=== PATIENT | male | born 1945 | race Caucasian/White ===

== ENCOUNTER 2018-06-11 14:37 | Inpatient (IN) | payer OTHER ==
[2018-06-11] MEDS ORDERED: Lidocaine 1% PF 5 ML VIAL ONE (14:38)
[2018-06-11] MEDS ORDERED: Dexamethasone 20 MG/5 ML VIAL ONE (14:38)
[2018-06-11] MEDS ORDERED: PROPOFOL 200 MG/20 ML VIAL ONE (14:38)
[2018-06-11] MEDS ORDERED: Ondansetron HCl/PF 4 MG/2 ML Vial ONE ×2 (14:38→15:08)
[2018-06-11] MEDS ORDERED: Acetaminophen/Codeine 30-300mg Tablet ONE (14:50)
[2018-06-11] MEDS ORDERED: Morphine 4 MG/ML Carpuject ONE ×2 (15:08→17:24)
[2018-06-11 15:26] LABS: Band 2 % (5-11); Lymphocytes 2 % (21-51); MDiff Complete? YES; Mean Corpuscular HGB CONC 35.8 g/dL (32.0-36.0); Mean Corpuscular Hemoglobin 29.8 pg (27.0-31.0); Mean Corpuscular Volume 83.1 fL (78.0-98.0); Mean Platelet Volume 8.1 fL (7.4-10.4); Monocytes 1 % (0-10); Neutrophil 95 % (42-75); PLT Morphology Comment Appears Adequate; Platelet Count 275 thou/uL (130-400); RBC Distribution Width 10.9 % (11.5-14.5); RBC Morphology Normal; Red Blood Cell (RBC) Count 5.39 mill/uL (4.70-6.10); White Blood Cell (WBC) Count 22.5 thou/uL (4.8-10.8)
[2018-06-11 16:10] LABS: ALT (SGPT) 25 U/L (8-55); AST (SGOT) 19 U/L (5-34); Albumin 4.4 g/dL (3.4-4.8); Alkaline Phosphatase 71 U/L (40-150); Anion Gap 20 mmol/L (10-20); BUN (Urea Nitrogen) 16 mg/dL (8.4-25.7); Bilirubin, Total 1.4 mg/dL (0.2-1.2); Calc. Creatinine Clearance 0 mL/min (70-130); Calcium 9.5 mg/dL (7.8-10.44); Carbon Dioxide 19 mmol/L (23-31); Chloride 103 mmol/L (98-107); Estimated GFR-MDRD 71; Globulin 3.4 g/dL (2.4-3.5); Glucose 166 mg/dL (83-110); Lipase 13 U/L (8-78); Potassium 4.5 mmol/L (3.5-5.1); Protein, Total 7.8 g/dL (5.8-8.1); Sodium 137 mmol/L (136-145)
--- NOTE | 2018-06-11 16:14 | CT ---
CT ABDOMEN AND PELVIS WITHOUT CONTRAST: 06/11/18 HISTORY: Left flank pain. FINDINGS: Absence of oral and IV contrast reduces the sensitivity of the exam particularly for evaluation of so lid organs and bowel. The lung bases are unremarkable. A moderate sized hiatal hernia is present. No free air or free fluid is seen in the abdomen or pelvis. No calcified gallstones are seen. There are multiple calcified gra nulomas in the spleen. A normal appearing appendix is present. No calculi noted in the kidneys, urinary bladder or the right ureter. There is a 3 mm calculus in the left distal ureter close to the UVJ with ipsilateral mild hydroureteronephrosis. There is colonic diverticulosis without evidence of diverticulitis. There are vascular calcifications without evidence of aneurysmal dilatation of the abdominal aorta. Degenerative changes are present i n the spine. The prostate is enlarged. There are fat containing bilateral inguinal hernia, left large r than right. IMPRESSION: 1. 3 mm distal left ureteral calculus with mild hydroureteronephrosis. 2. Prostatic enlargement. 3. Moderate hiatal hernia. 4. Colonic diverticulosis. POS: OFF
[2018-06-11] MEDS ORDERED: cefTRIAXone\\ROCEPHIN 1 GM VIAL ONE ×2 (16:58→17:05)
[2018-06-11] MEDS ORDERED: Sodium Chloride 0.9% 100 ML ONE (16:58)
[2018-06-11] MEDS ORDERED: Fentanyl 100 MCG/2 ML VIAL ONE (18:16)
[2018-06-11 19:01] LABS: Lactic Acid 2.5 mmol/L (0.5-2.2)
[2018-06-11] MEDS ORDERED: Ondansetron HCl/PF 4 MG/2 ML Vial IVP PRN ×2 (19:31→21:48)
[2018-06-11] MEDS ORDERED: Promethazine HCl 25 MG/ML VIAL IM PRN (19:31)
[2018-06-11] MEDS ORDERED: Promethazine HCl 25 MG/ML VIAL SLOW IVP PRN (19:31)
--- NOTE | 2018-06-11 19:38 | RAD ---
SINGLE SUBMITTED IMAGE FROM AN IVP RETROGRADE 06/11/18 INDICATION: Renal stones. COMPARISON: Prior CT of the abdomen and pelvis dated 06/11/18. FINDINGS: Single submitted image demonstrates bladder probe and a left ureteral stent that projects in the expe cted position. There are numerous phleboliths within the lower pelvis. The bowel gas pattern is nons pecific. No acute osseous abnormality is evident. IMPRESSION: Left ureteral stent and bladder probe. POS: ZORAIDA
[2018-06-11 20:11] LABS: Clarity Hazy (Clear); Leukocyte Moderate (Negative); pH, Urine 5.5 (5.0-9.0)
[2018-06-11 20:12] LABS: Bilirubin Unable to Interpret (Negative); Blood, Urine Large (Negative); Glucose, Urine (Dipstick) Unable to Interpret mg/dL (Negative); Nitrite Unable to Interpret (Negative); Urobilinogen UNABLE TO INTERPRET mg/dL (0.2-1.0)
[2018-06-11 20:18] LABS: Protein, Urine (Dipstick) 30 mg/dL (Neg-Trace)
[2018-06-11 20:19] LABS: RBC/HPF GREATER THAN 50-TNTC HPF (0-3); Squamous Epithelial 0-3 HPF (0-3)
[2018-06-11 20:20] LABS: Bacteria/HPF 1+ HPF (None Seen); Hyaline Casts/LPF NONE SEEN LPF (0-3 Hyaline); Transitional Epithelial 0-3 HPF (0-3)
[2018-06-11] MEDS ORDERED: Vancomycin HCl 1 GM in Premix Bag 1 BAG IVPB SCH (21:00)
[2018-06-11] MEDS ORDERED: Docusate 100 MG CAP PO PRN (21:48)
[2018-06-11] MEDS ORDERED: Loratadine 10 MG TAB PO PRN (21:48)
[2018-06-11] MEDS ORDERED: Famotidine 20 MG TAB PO PRN (21:48)
[2018-06-11] MEDS ORDERED: Diabetic Tussin 200 MG/10 ML UDCUP PO PRN (21:48)
[2018-06-11] MEDS ORDERED: Fleet Enema 133 ML BOT PR PRN (21:48)
[2018-06-11] MEDS ORDERED: diphenhydrAMINE 25 MG CAP PO PRN (21:48)
[2018-06-11] MEDS ORDERED: hydrALAZINE 20 MG/ML VIAL SLOW IVP PRN (21:48)
[2018-06-11] MEDS ORDERED: Bisacodyl 5 MG TAB PO PRN (21:48)
[2018-06-11] MEDS ORDERED: Sodium Chloride 0.65% Nasal 44 ML BOT EA NARE PRN (21:48)
[2018-06-11] MEDS ORDERED: Acetaminophen 325 MG TAB PO PRN (21:48)
[2018-06-11] MEDS ORDERED: Benzonatate 100 MG CAP PO PRN (21:48)
[2018-06-11] MEDS ORDERED: Senokot 8.6 MG TAB PO PRN (21:48)
[2018-06-11 22:00] VITALS: BMI 28.3
[2018-06-12 05:27] LABS: Anion Gap 9 mmol/L (10-20); BUN (Urea Nitrogen) 13 mg/dL (8.4-25.7); Calc. Creatinine Clearance 80 mL/min (70-130); Calcium 8.5 mg/dL (7.8-10.44); Carbon Dioxide 24 mmol/L (23-31); Chloride 110 mmol/L (98-107); Estimated GFR-MDRD 77; Glucose 173 mg/dL (83-110); Potassium 4.3 mmol/L (3.5-5.1); Sodium 139 mmol/L (136-145)
[2018-06-12 05:52] LABS: Band 4 % (5-11); Hemoglobin 13.6 g/dL (14.0-18.0); Hypochromia SLIGHT = 6-15 cells (100X) (0-5/hpf); Lymphocytes 3 % (21-51); MDiff Complete? YES; Mean Corpuscular HGB CONC 33.1 g/dL (32.0-36.0); Mean Corpuscular Hemoglobin 30.1 pg (27.0-31.0); Mean Corpuscular Volume 91.1 fL (78.0-98.0); Mean Platelet Volume 7.5 fL (7.4-10.4); Neutrophil 93 % (42-75); PLT Morphology Comment Appears Adequate; Platelet Count 212 thou/uL (130-400); RBC Distribution Width 11.7 % (11.5-14.5); Red Blood Cell (RBC) Count 4.53 mill/uL (4.70-6.10); White Blood Cell (WBC) Count 20.1 thou/uL (4.8-10.8)
[2018-06-12] MEDS: Tamsulosin HCl 0.4 MG CAP PO SCH (08:43)
[2018-06-12] MEDS: Heparin 5,000 UNITS/ML VIAL SC SCH ×3 (08:43→20:28)
--- NOTE | 2018-06-12 08:46 | OP ---
Please note that I did a consultation by hand and that is in the chart so it will not be a dictated consultation, but that can be scanned in. DATE OF SERVICE: 06/11/2018 PREOPERATIVE DIAGNOSES: Left ureteral stone with urinary tract infection and concern for sepsis. POSTOPERATIVE DIAGNOSES: Left ureteral stone with urinary tract infection and concern for sepsis. PROCEDURES: Cystoscopy, left retrograde pyelogram, insertion of left ureteral stent, 6 x 22. SURGEON: Janeen Meade MD ANESTHESIA: General with laryngeal mask airway. FINDINGS: Significant hydronephrotic drip, but no obvious hydronephrosis by retrograde pyelogram, adequate placement of 6 x 22 double-J stent for distal obstructing stone. COMPLICATIONS: None. DRAINS REMAININ x 22 indwelling double-J stent and an 18-St Helenian Ricardo secured. SPECIMENS: Urine from the left renal pelvis. BLOOD LOSS: Minimal. OTHER FINDINGS: BPH with significant trabeculation and cellules. INDICATIONS: The patient is a 73-year-old male who was seen in the [facility] and noted to have a urinary tract infection with a distal obstructing stone and transferred with an elevated heart rate, white count, and lactic acid. He was otherwise hemodynamically stable, so I elected to do an urgent stent. PROCEDURE IN DETAIL: The patient was brought into the room by Anesthesia, laid on the table in supine position after receiving general anesthetic with a laryngeal mask airway carefully and without having to maneuver his neck and any significant change from its natural position. His airway was secured. Then, his legs were placed in lithotomy position and his perineum was prepped and draped in sterile fashion. A 21-St Helenian cystoscope and 30-degree lens was used to traverse the urethra and into the bladder, very orange urine consistent with Pyridium was noted and released, but it was not cloudy, nor malodorous. The prostate was enlarged but was able to easily identify both ureteral orifices. Trabeculation and cellules were noted someto be the size of a small diverticulum. The left ureteral orifice was intubated with a wire and then the Pollack catheter advanced over the wire and up into the renal pelvis where hydronephrotic drip was noted and approximately 15 mL of hematuric urine extracted. It was still transparent urine and sent for specimen. Measurements were taken and a 6 x 22 double-J was placed over wire with a coil slightly extended into a erich proximally and a good coil visualized in the bladder. I did not wish to pull it down further making it too distal, since I suspect when he would awaken and move the proximal end would coil naturally. So at this point, the scope was broken apart, the bladder partially drained and an 18- [place] Helenian Ricardo placed to gravity and secured. The patient tolerated the procedure well and was then awakened and transferred to PACU in stable condition. ALEXANDER
--- NOTE | 2018-06-12 08:57 | PRG ---
DATE OF SERVICE: 06/12/2018 SUBJECTIVE: The patient did well overnight, actually slept well, drank without difficulty and is hun gry. He did have pain in the left flank with void, but he has been able to void 2 times without diff iculty and does feel empty. The urine is still hematuric. He has no other complaints. We reviewed his bladder findings consistent with significant BPH and how again after the stone episod e he should still continue on tamsulosin as an outpatient and have that further assessed with a Urofl ow. We then discussed plans for either returning to the operating room after discharge and on an ou tpatient basis to get rid of the stone, but also how since it is quite small simply removing the sten t in the office will likely enable its passage. Putting him to sleep is complicated by his cervical contraction, but fortunately he did well with just an LMA for this procedure; however, that I think i s an increased risk from a surgical standpoint, so I would recommend attempting spontaneous passage w ith just stent removal as an outpatient which would happen in approximately 10-14 days. OBJECTIVE: Objective-cohen, his vitals are stable. His pulse is now down to 66 and he is satting 97% on 2 liters. His urine output is excellent at 1325 and the urine does appear to be clearing in comp arison through the night before. LABORATORY DATA: His white count is still elevated, but I suspect this is a slow resolution as it is improved. His BUN and creatinine are stable and normal. Urinalysis from the OR showed 11-20, WBCs too numerous to count RBCs, 1+ bacteria. There should be a culture from the [facility] ER as well as from the OR pending. ASSESSMENT: We have a 73-year-old male status post urgent stent for obstructing small left distal st one with urinary tract infection and concern for urosepsis doing well on Rocephin and vancomycin curr ently. I would await his culture, either from the [facility] ER or the OR here before lucy nging him over to antibiotics that he should complete for 2 weeks. If blood cultures are positive, h jakob ultimately would need 4 weeks of antibiotics. I have already written for tamsulosin and Cipro, but this may need to be changed depending on the culture results and he should follow up with me in the office. We reviewed all of this in detail. All questions were answered. If there are further al rns Dr. Pedraza will be transitional nurse over the weekend, but I suspect once his cultures come back, he will be medically stable for discharge.
--- NOTE | 2018-06-12 11:02 | PDOC.PN ---
- Subjective Encounter Start Date: 06/12/18 Encounter Start Time: 11:00 Subjective: nsg notes rev, gabbie ovn, Ricardo is out, pt is urinating sponataneously -: but c/o it is still painful - Objective Resuscitation Status: Resuscitation Status FULL:Full Resuscitation Vital Signs & Weight: Vital Signs (12 hours) Temp Pulse Resp BP Pulse Ox 06/12/18 08:00 96.9 F L 67 20 97 06/12/18 07:32 96.9 F L 67 20 143/66 H 97 06/12/18 03:51 96.3 F L 66 18 124/70 97 06/11/18 23:55 97.3 F L 85 16 117/66 95 Weight Weight 171 lb I&O: 06/11/18 06/12/18 06/13/18 06:59 06:59 06:59 Intake Total 1300 Output Total 1355 Balance -55 Result Diagrams: 06/12/18 04:43 06/12/18 04:43 Phys Exam - Physical Examination Constitutional: NAD seated in hospital chair HEENT: PERRLA, moist MMs Respiratory: no wheezing, no rales, no rhonchi Cardiovascular: RRR, no significant murmur, no rub Gastrointestinal: soft, non-tender, positive bowel sounds Musculoskeletal: pulses present Neurological: moves all 4 limbs Dx/Plan - Plan cont current plan of care, continue antibiotics * obstructive 3mm L ureteral stone * apprec urology c/s * Ricardo is removed sepsis improving, continue with empiric abx bacteremia, Klebsiella continue with empiric abx repeat blood cx appre ID c/s cough improved, continue supportive care diet: as elaine activity: as elaine dvt ppx plan for transfer to telemetry Review of Systems - Medications/Allergies Allergies/Adverse Reactions: Allergies Allergy/AdvReac Type Severity Reaction Status Date / Time codeine Allergy Nausea Verified 06/11/18 22:08 Medications: Current Medications Acetaminophen (Tylenol) 650 mg PO Q4H PRN PRN Reason: Headache/Fever or Mild Pain Benzonatate (Tessalon) 100 mg PO Q4H PRN PRN Reason: Cough Last Admin: 06/11/18 22:47 Dose: 100 mg Bisacodyl (Dulcolax) 10 mg PO DAILYPRN PRN PRN Reason: Constipation Diphenhydramine HCl (Benadryl) 25 mg PO DAILYPRN PRN PRN Reason: Sinus Symptoms Docusate Sodium (Colace) 100 mg PO BIDPRN PRN PRN Reason: Constipation Famotidine (Pepcid) 20 mg PO BIDPRN PRN PRN Reason: Heartburn or Indigestion Guaifenesin (Robitussin Sf) 200 mg PO Q4H PRN PRN Reason: Cough Heparin Sodium (Porcine) (Heparin) 5,000 units SC TID [facility] Last Admin: 06/12/18 08:43 Dose: 5,000 units Hydralazine HCl (Apresoline) 10 mg SLOW IVP Q4H PRN PRN Reason: Systolic BP > 180 Ceftriaxone Sodium 2 gm/ (Sodium Chloride) 100 mls @ 200 mls/hr IVPB 1700 ELIOT Vancomycin HCl 1 gm/ Device 200 mls @ 133.333 mls/hr IVPB 2100 [facility] Last Admin: 06/11/18 21:49 Dose: 200 mls Loratadine (Claritin) 10 mg PO DAILYPRN PRN PRN Reason: Sinus Symptoms Ondansetron HCl (Zofran) 4 mg IVP Q6H PRN PRN Reason: Nausea/Vomiting Oxybutynin Chloride (Ditropan) 5 mg PO Q8H PRN PRN Reason: Muscle Spasm Pneumococcal 13-Valent Conj Vacc (Prevnar) 0.5 ml IM .ONCE ONE Stop: 06/13/18 09:01 Senna (Senokot) 2 tab PO HSPRN PRN PRN Reason: Constipation Sodium Biphosphate/Sodium Phosphate (Fleet Enema) 133 ml [place] ONE PRN PRN Reason: Constipation Stop: 06/14/18 21:49 Sodium Chloride ([place] Nasal [place] 0.65%) 0 ml EA NARE QIDPRN PRN PRN Reason: Nasal Congestion Tamsulosin HCl (Flomax) 0.4 mg PO DAILY [facility] Last Admin: 06/12/18 08:43 Dose: 0.4 mg
[2018-06-12] MEDS ORDERED: cefTRIAXone\\ROCEPHIN 2 GM in Sodium Chloride 0.9% 100 ML IVPB SCH (17:00)
--- NOTE | 2018-06-12 20:06 | CON ---
DATE OF CONSULTATION: 06/12/2018 REASON: Obstructive pyelonephritis with sepsis. HISTORY OF PRESENT ILLNESS: A 73-year-old with a history of hypertension and nephrolithiasis as well as acquired a torticollis who was admitted with new onset of left flank pain associated with vomiting and dysuria. On arrival, his temperature was 97.6, pulse 111, BP 150/75. Exam remarkable for clear lungs, normal heart exam, nontender abdomen and abdomen and pelvis CT showed moderate hiatal hernia, a 3 mm calculus in the left distal ureter close to the UVJ with mild hydronephrosis. Initial white cell count 22,000 with platelets 275, bilirubin 1.4 and transaminases and alkaline phosphatase normal, albumin 4.4. Urinalysis with 11-20 WBCs. The patient has been given vancomycin and Rocephin , we will have two sets of blood cultures with Klebsiella pneumoniae, pending susceptibilities. Urine culture with likely the same organism. The patient had a stent placed by Dr. Meade and he is recovering in the telemetry area. Denies headaches, no visual symptoms, the spasmodic torticollis, which is a chronic condition, no respiratory symptoms. Mild cough, no abdominal pain or diarrhea. No flank pain is still there, but less intense. No joint symptoms. No neurological symptoms other than torticollis. PAST MEDICAL HISTORY: Spasmodic torticollis, acquired; hypertension; and nephrolithiasis. SOCIAL HISTORY: Never a smoker. ALLERGIES: CODEINE with mostly gastrointestinal adverse reaction. MEDICATION LIST: Home lisinopril, and aspirin and currently on Rocephin plus p.r.n. meds. FAMILY HISTORY: Noncontributory. He is and lives in [place]. PHYSICAL EXAMINATION: VITAL SIGNS: Blood pressure 143/66, T-max 96.9, pulse 67, respirations 18-20, O2 saturation 97%. GENERAL: Appears in no distress. HEENT: Ocular movements conjugate. Sclerae white. Pupils are equal. SKIN: No skin abnormalities as patient has a peripheral IV access and a Ricardo catheter. No lymphadenopathy. Oral cavity is normal. NECK: Neck with this spasmodic deviation towards the left side, which is a chronic condition. LUNGS: Clear to auscultation and percussion. HEART: S1, S2, regular rate. No murmurs. No S3, S4. ABDOMEN: Soft, not distended or tender. No ascites or bladder distention. EXTREMITIES: No joint inflammatory activity. Pulses are 1+ in dorsalis pedis. Plantar responses are flexure, moves all extremities equally. NEUROLOGIC: Cognitive function appears to be intact. LABORATORY DATA: White cell count is down to 20,000, hemoglobin 13.6, platelets II-XII. ASSESSMENT AND PLAN: History of nephrolithiasis and hypertension with spasmodic torticollis, now with recrudescence of nephrolithiasis and obstruction with status post stenting with Klebsiella and blood culture and urine. There has been some significant clinical response and must be a pansensitive strain, but will wait for final results. The plan would be to treat this with oral quinolone if susceptible in the final results of the microbiology panel and continue treatment until a few days after the stent removal. It looks like he is going to have basket removal of stone and maybe possibly stent removal or maybe retention of the stent after the stone removal. After the device is removed, the patient may continue the antimicrobial for few more days and then discontinue it. If the stent is left in place for a longer period of time then would d/c antimicrobials a few days after stone retrieval or if the stone is passed spontaneously. And then resume the same regime during the subsequent procedure to remove stent. No evidence of other sites of dissemination of the original infectious process outside the blood, there might be some mild capillary leak syndrome. MTDD
[2018-06-13 05:38] LABS: #Monocytes 1.1 thou/uL (0.11-0.59); #Neutrophils 11.2 thou/uL (1.40-6.50); %Basophils 0.1 % (0.0-1.0); %Eosinophils 0.1 % (0.0-10.0); %Lymphocytes 13.6 % (21.0-51.0); %Monocytes 7.8 % (0.0-10.0); %Neutrophils 78.4 % (42.0-75.0); Hemoglobin 13.6 g/dL (14.0-18.0); Mean Corpuscular HGB CONC 33.8 g/dL (32.0-36.0); Mean Corpuscular Hemoglobin 30.5 pg (27.0-31.0); Mean Corpuscular Volume 90.4 fL (78.0-98.0); Mean Platelet Volume 7.7 fL (7.4-10.4); Platelet Count 201 thou/uL (130-400); RBC Distribution Width 11.8 % (11.5-14.5); Red Blood Cell (RBC) Count 4.46 mill/uL (4.70-6.10); White Blood Cell (WBC) Count 14.3 thou/uL (4.8-10.8)
[2018-06-13 05:55] LABS: Anion Gap 10 mmol/L (10-20); BUN (Urea Nitrogen) 15 mg/dL (8.4-25.7); Calc. Creatinine Clearance 85 mL/min (70-130); Calcium 8.7 mg/dL (7.8-10.44); Carbon Dioxide 26 mmol/L (23-31); Chloride 109 mmol/L (98-107); Estimated GFR-MDRD 84; Glucose 123 mg/dL (83-110); Potassium 3.8 mmol/L (3.5-5.1); Sodium 141 mmol/L (136-145)
[2018-06-13] MEDS: Heparin 5,000 UNITS/ML VIAL SC SCH ×3 (08:13→21:00)
[2018-06-13] MEDS: Tamsulosin HCl 0.4 MG CAP PO SCH (08:15)
[2018-06-13] MEDS ORDERED: Sodium Chloride 0.9% 10 ML ONE (08:20)
[2018-06-13] MEDS: Oxybutynin 5 MG TAB PO PRN ×2 (08:20→16:34)
[2018-06-13] MEDS ORDERED: Prevnar 13-Val Conj/PF 0.5 ML SYRINGE IM ONE (09:00)
--- NOTE | 2018-06-13 16:28 | PDOC.PN ---
- Subjective Encounter Start Date: 06/13/18 Encounter Start Time: 16:28 Subjective: nsg notes rev, gabbie ovn, pain generally well controlled but -: does have some occ flank pain simon on the left -: @ bedside - Objective Resuscitation Status: Resuscitation Status FULL:Full Resuscitation Vital Signs & Weight: Vital Signs (12 hours) Temp Pulse Resp BP Pulse Ox 06/13/18 11:00 97.7 F 73 18 133/68 98 06/13/18 08:11 97.9 F 96 18 120/59 L 96 06/13/18 05:00 97.7 F 82 15 145/70 H 97 Weight Weight 174 lb 8 oz I&O: 06/12/18 06/13/18 06/14/18 06:59 06:59 06:59 Intake Total 1300 1020 Output Total 1355 376 Balance -55 644 Result Diagrams: 06/13/18 05:25 06/13/18 05:25 Phys Exam - Physical Examination Constitutional: NAD lying on the hospital bed Respiratory: no wheezing, no rales, no rhonchi, clear to auscultation bilateral Cardiovascular: RRR, no significant murmur, no rub Gastrointestinal: soft, non-tender, no distention, positive bowel sounds Musculoskeletal: pulses present Neurological: moves all 4 limbs Psychiatric: normal affect, A&O x 3 Dx/Plan - Plan * obstructive 3mm L ureteral stone * apprec urology c/s - s/p stent and basket placement * Ricardo is removed, still yuen when he urinates, but is urinating well spontaneously sepsis 2/2 UTI and bactermia - resolved d/c IVF bacteremia, Klebsiella, oglesby sensitive transition from empiric IV abx to oral levaquin appre ID c/s regarding timing and duration of abx cough improved, continue supportive care diet: as elaine activity: as elaine dvt ppx plan for transfer to med/surg d/w pt and at bedside d/w bedside nsg greater than 30 min spent at bedside discussing plan of care and results as per above Review of Systems - Medications/Allergies Allergies/Adverse Reactions: Allergies Allergy/AdvReac Type Severity Reaction Status Date / Time codeine Allergy Nausea Verified 06/11/18 22:08 Medications: Current Medications Acetaminophen (Tylenol) 650 mg PO Q4H PRN PRN Reason: Headache/Fever or Mild Pain Benzonatate (Tessalon) 100 mg PO Q4H PRN PRN Reason: Cough Last Admin: 06/11/18 22:47 Dose: 100 mg Bisacodyl (Dulcolax) 10 mg PO DAILYPRN PRN PRN Reason: Constipation Last Admin: 06/12/18 20:27 Dose: 10 mg Diphenhydramine HCl (Benadryl) 25 mg PO DAILYPRN PRN PRN Reason: Sinus Symptoms Docusate Sodium (Colace) 100 mg PO BIDPRN PRN PRN Reason: Constipation Last Admin: 06/12/18 20:27 Dose: 100 mg Famotidine (Pepcid) 20 mg PO BIDPRN PRN PRN Reason: Heartburn or Indigestion Guaifenesin (Robitussin Sf) 200 mg PO Q4H PRN PRN Reason: Cough Heparin Sodium (Porcine) (Heparin) 5,000 units SC TID [facility] Last Admin: 06/13/18 08:13 Dose: 5,000 units Hydralazine HCl (Apresoline) 10 mg SLOW IVP Q4H PRN PRN Reason: Systolic BP > 180 Levofloxacin (Levaquin) 750 mg PO 0600 [facility] Lidocaine (Lidoderm 5% Patch) 1 patch TD DAILY [facility] Loratadine (Claritin) 10 mg PO DAILYPRN PRN PRN Reason: Sinus Symptoms Ondansetron HCl (Zofran) 4 mg IVP Q6H PRN PRN Reason: Nausea/Vomiting Oxybutynin Chloride (Ditropan) 5 mg PO Q8H PRN PRN Reason: Muscle Spasm Last Admin: 06/13/18 08:20 Dose: 5 mg Senna (Senokot) 2 tab PO HSPRN PRN PRN Reason: Constipation Last Admin: 06/13/18 10:56 Dose: 2 tab Sodium Biphosphate/Sodium Phosphate (Fleet Enema) 133 ml [place] ONE PRN PRN Reason: Constipation Stop: 06/14/18 21:49 Sodium Chloride ([place] Nasal [place] 0.65%) 0 ml EA NARE QIDPRN PRN PRN Reason: Nasal Congestion Tamsulosin HCl (Flomax) 0.4 mg PO DAILY [facility] Last Admin: 06/13/18 08:15 Dose: 0.4 mg
[2018-06-13] MEDS: Lidocaine 5% Patch TD SCH (17:33)
--- NOTE | 2018-06-13 20:02 | PRG ---
DATE OF SERVICE: 06/13/2018 BRIEF HISTORY: Mr. 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 The patient presented to the hospital on 06/11/2018 with ob structive ureteral calculus and signs of sepsis. The patient underwent a cystoscopy and left stent p lacement by Dr. Meade and has improved dramatically since then. He still has cultures pending. Tod ay, his cultures looked as if they are growing out a mixed culture of presumptive Klebsiella and Ente robacter. He did have blood and a standard urine culture positive for Klebsiella pneumoniae, which i s pansensitive. Patient has been on Levaquin to which the Klebsiella is sensitive. INTERVAL EVENTS: The patient has continued to improve on antibiotic therapy. He is tolerating the s tent without undue bladder discomfort except that and void. PHYSICAL EXAMINATION: VITAL SIGNS: The patient has been afebrile for more than 48 hours. Current temperature is 98.2, pul se 74, respirations 19, O2 saturation on room air is 98%. Current blood pressure is 164/77. GENERAL: This is a pleasant, awake, alert, white male in no apparent distress. HEENT: Extraocular movements are intact. Sclerae are anicteric. Oropharynx is clear. NECK: Supple. LUNGS: Clear to auscultation bilaterally. CARDIAC: Tele monitor in place. ABDOMEN: Soft and nontender. BACK: No costovertebral angle tenderness on either side. GENITOURINARY: The patient is voiding on his own without difficulty except in urination. LABORATORY STUDIES: White cell count today is down to 14,300 from 22,500 on 06/11/2018, percent neut rophils 78.4% improved from 93% previously. As noted Microbiology cultures remain pending from renal pelvis area, but urine cultures appear that the patient is on appropriate antibiotics with Levaquin. ASSESSMENT AND PLAN: 1. Ureteral calculus and indwelling left stent. The patient will follow up with Dr. Meade in 1-2 w [facility] for further assessment evaluation and planning. He may need additional imaging studies before t hat but he can contact Dr. Meade's office for guidance. 2. Sepsis symptoms and presentation with current Klebsiella and possible Enterobacter culture from t he left renal pelvis, currently awaiting results of that culture. The patient appears to be afebrile on current antibiotic therapy with Levaquin. Dr. Vaca was consulted and seen and evaluated the pat ient and made recommendations for the patient's treatment as far as antibiotic coverage. The recomme ndation yesterday was to wait for culture results to be available before discharging the patient to [facility].
[2018-06-14] MEDS: Lidocaine Patch Removal 1 EACH TOP SCH (05:26)
[2018-06-14 06:43] LABS: #Lymphocytes 2.3 thou/uL (1.20-3.40); #Monocytes 0.9 thou/uL (0.11-0.59); #Neutrophils 6.9 thou/uL (1.40-6.50); %Basophils 0.5 % (0.0-1.0); %Eosinophils 0.3 % (0.0-10.0); %Lymphocytes 22.8 % (21.0-51.0); %Monocytes 8.4 % (0.0-10.0); Hemoglobin 13.4 g/dL (14.0-18.0); Mean Corpuscular HGB CONC 34.5 g/dL (32.0-36.0); Mean Corpuscular Hemoglobin 30.9 pg (27.0-31.0); Mean Corpuscular Volume 89.8 fL (78.0-98.0); Mean Platelet Volume 7.5 fL (7.4-10.4); Platelet Count 205 thou/uL (130-400); RBC Distribution Width 11.7 % (11.5-14.5); Red Blood Cell (RBC) Count 4.32 mill/uL (4.70-6.10); White Blood Cell (WBC) Count 10.2 thou/uL (4.8-10.8)
[2018-06-14 06:45] LABS: Anion Gap 11 mmol/L (10-20); BUN (Urea Nitrogen) 11 mg/dL (8.4-25.7); Calc. Creatinine Clearance 84 mL/min (70-130); Calcium 8.7 mg/dL (7.8-10.44); Carbon Dioxide 25 mmol/L (23-31); Chloride 106 mmol/L (98-107); Estimated GFR-MDRD 83; Glucose 122 mg/dL (83-110); Potassium 3.8 mmol/L (3.5-5.1); Sodium 138 mmol/L (136-145)
[2018-06-14] MEDS: Tamsulosin HCl 0.4 MG CAP PO SCH (10:06)
[2018-06-14] MEDS: Heparin 5,000 UNITS/ML VIAL SC SCH ×3 (10:07→22:16)
[2018-06-14] MEDS: Lidocaine 5% Patch TD SCH (18:42)
--- NOTE | 2018-06-14 19:51 | PDOC.PN ---
- Subjective Encounter Start Date: 06/14/18 Encounter Start Time: 19:35 Subjective: f/u for L nephrolithiasis s/p L ureteral stent placement with Klebsiella -: sepsis. Currently on Levaquin. Feels much better overall. - Objective Resuscitation Status: Resuscitation Status FULL:Full Resuscitation MAR Reviewed: Yes Vital Signs & Weight: Vital Signs (12 hours) Temp Pulse Resp BP Pulse Ox 06/14/18 16:05 98.3 F 70 16 158/75 H 96 06/14/18 12:00 97.9 F 71 20 173/80 H 96 06/14/18 08:40 97.7 F 72 20 147/77 H Weight Weight 174 lb 8 oz I&O: 06/13/18 06/14/18 06/15/18 06:59 06:59 06:59 Intake Total 1020 1140 680 Output Total 376 1235 452 Balance 644 -95 228 Result Diagrams: 06/14/18 06:13 06/14/18 06:13 Additional Labs: Microbiology 06/11/18 19:08 Renal - Left Bacterial Culture - Final 06/11/18 19:08 Renal - Left Anaerobic Culture - Final Klebsiella pneumoniae ssp ozae 06/11/18 16:24 Venous blood - Right Arm Blood Culture - Final Klebsiella pneumoniae ssp pneu 06/11/18 16:18 Venous blood - Right Arm Blood Culture - Final Klebsiella pneumoniae ssp pneu 06/11/18 16:00 Urine clean catch Urine Culture - Final Klebsiella pneumoniae ssp pneu 06/12/18 11:25 Venous blood - Right Arm Blood Culture - Preliminary NO GROWTH AT 48 HOURS 06/12/18 11:25 Venous blood - Left Hand Blood Culture - Preliminary NO GROWTH AT 48 HOURS Phys Exam - Physical Examination Constitutional: NAD HEENT: PERRLA, sclera anicteric, oral pharynx no lesions L torticollis, chronic Neck: no nodes, no JVD, supple, full ROM Respiratory: no wheezing, no rales, no rhonchi, clear to auscultation bilateral S1, S2 Cardiovascular: RRR, no significant murmur, no rub, gallop Gastrointestinal: soft, non-tender, no distention, positive bowel sounds Musculoskeletal: no edema, pulses present Neurological: non-focal, normal sensation, moves all 4 limbs Psychiatric: normal affect, A&O x 3 Skin: no rash, normal turgor, cap refill <2 seconds Dx/Plan (1) Klebsiella sepsis Code(s): A41.4 - SEPSIS DUE TO ANAEROBES Status: Acute Comment: Continue Levaquin 750mg po daily, plan for outpt abx coverage through stent removal (2) Left nephrolithiasis Code(s): N20.0 - CALCULUS OF KIDNEY Status: Acute Comment: s/p L ureteral stent placement 06/11/18 (3) Leukocytosis Code(s): D72.829 - ELEVATED WHITE BLOOD CELL COUNT, UNSPECIFIED Status: Acute Comment: Resolving with abx tx and stent placement (4) HTN (hypertension) Code(s): I10 - ESSENTIAL (PRIMARY) HYPERTENSION Status: Chronic Qualifiers: Hypertension type: essential hypertension Qualified Code(s): I10 - Essential (primary) hypertension Comment: Resume Lisinopril 20mg daily - Plan plan discussed w/ family, continue antibiotics, nursing home social worker, out of bed/ ambulate, DVT proph w/SCDs Stable overall -: Continue Levaquin 750mg po daily -: OOB/ambulate -: Resume Lisinopril 20mg daily -: AM lab: BMP, CBC * Home in am 06/15/18
--- NOTE | 2018-06-14 22:52 | CON ---
DATE OF CONSULTATION: 06/14/2018 BRIEF HISTORY: Mr. 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 The patient presented to the hospital on 06/11/2018 with obstructive ureteral calculus and signs of sepsis. He underwent cystoscopy and left-sided stent plac ement by Dr. Meade and has improved dramatically since then. His cultures were pending overnight, h e had actually 2 organisms isolated from above his obstructive calculus. Microbiology report shows t hat the left renal culture is growing a Klebsiella pneumoniae subspecies ozaenae. This organism is p ansensitive. Based on those culture results, the patient probably could be discharged to home in the morning. PHYSICAL EXAMINATION: VITAL SIGNS: Temperature is 98.3, pulse 70, respirations 16, O2 saturations 96% on room air, blood p ressure is 158/75. GENERAL: This is a pleasant white male in no apparent distress. He has a degree of torticollis to t he left. HEAD, EYES, EARS, NOSE, AND THROAT: Extraocular movements are intact. Sclerae are anicteric. Oroph arynx is clear. NECK: Supple. LUNGS: Clear to auscultation bilaterally. CARDIAC: Regular rate and rhythm. BACK: There is no true costovertebral angle tenderness on either side. GENITOURINARY: The patient is voiding on his own. He reports that his bladder spasm symptoms have i mproved over the last 24 hours. He does have an indwelling stent on the left side. LABORATORY STUDIES: The patient's white count has now fallen into the normal range, now white count down from 14.3 yesterday to 10.2 today. Hemoglobin is 13.4 with hematocrit of 38.8. There is no ander dence of left shift today with percent neutrophils down to 68%. Microbiology reports are as noted previously in this report. ASSESSMENT AND PLAN: 1. Left-sided calculus to be addressed by Dr. Meade as an outpatient. He probably will require CT scan imaging to verify clearance of the stone. A CT stone study probably should be performed prior t o the patient's appearance in Dr. Meade's clinic. 2. Klebsiella urinary tract infection. The patient has been improving on current medical therapy wi Levaquin. This may be continued as an outpatient should be considered a complicated urinary tract infection in a male and the patient should receive at least a 2-week course as indicated by Dr. Mariella peña Over 35 minutes consultation assessment time spent in evaluation of Mr. Lantigua today.
[2018-06-15] MEDS: Lidocaine Patch Removal 1 EACH TOP SCH (04:49)
[2018-06-15 05:32] LABS: #Eosinphils 0.1 thou/uL (0.0-0.7); #Lymphocytes 2.3 thou/uL (1.20-3.40); #Monocytes 0.7 thou/uL (0.11-0.59); #Neutrophils 4.4 thou/uL (1.40-6.50); %Basophils 0.2 % (0.0-1.0); %Eosinophils 0.7 % (0.0-10.0); %Lymphocytes 30.9 % (21.0-51.0); %Monocytes 9.4 % (0.0-10.0); %Neutrophils 58.7 % (42.0-75.0); Hemoglobin 13.2 g/dL (14.0-18.0); Mean Corpuscular Hemoglobin 31.1 pg (27.0-31.0); Mean Corpuscular Volume 88.9 fL (78.0-98.0); Mean Platelet Volume 7.6 fL (7.4-10.4); Platelet Count 203 thou/uL (130-400); RBC Distribution Width 11.5 % (11.5-14.5); Red Blood Cell (RBC) Count 4.24 mill/uL (4.70-6.10); White Blood Cell (WBC) Count 7.6 thou/uL (4.8-10.8)
[2018-06-15 05:38] LABS: Anion Gap 10 mmol/L (10-20); BUN (Urea Nitrogen) 11 mg/dL (8.4-25.7); Calc. Creatinine Clearance 94 mL/min (70-130); Calcium 8.8 mg/dL (7.8-10.44); Carbon Dioxide 26 mmol/L (23-31); Chloride 107 mmol/L (98-107); Estimated GFR-MDRD Greater than 90; Glucose 125 mg/dL (83-110); Potassium 3.7 mmol/L (3.5-5.1); Sodium 139 mmol/L (136-145)
[2018-06-15 08:27] VITALS: BP 155/71; TEMP 97.6
[2018-06-15] MEDS: Heparin 5,000 UNITS/ML VIAL SC SCH (08:28)
[2018-06-15] MEDS: Tamsulosin HCl 0.4 MG CAP PO SCH (08:28)
[2018-06-15] MEDS ORDERED: Lisinopril 20 MG TAB PO SCH (09:00)
--- NOTE | 2018-06-15 10:55 | DIS ---
DATE OF ADMISSION: 06/11/2018 DATE OF DISCHARGE: 06/15/2018 DISCHARGE DIAGNOSES: 1. Sepsis secondary to Klebsiella species. 2. Left nephrolithiasis status post left ureteral stent placement on 06/11/2018. 3. Complicated urinary tract infection with Klebsiella species. 4. Leukocytosis secondary to #1, resolved. 5. Hypertension, stable. CONSULTATIONS: Dr. Meade and Milo with Urology Service. PERTINENT LABORATORY DATA AND IMAGING DATA: Creatinine ranged between 0.81-1.03, estimated GFR rangi ng between 71 to greater than 90. Lactic acid level 2.5. CBC showed white blood cell count ranging between 7.6-22.5. Urine culture dated 06/11/2018 showed greater than 100,000 colonies of Klebsiella pneumoniae, species pansensitive. Blood cultures x2 dated 06/11/2018 positive for Klebsiella pneumon ia species. Left renal pelvis bacterial culture dated 06/11/2018 positive for Klebsiella pneumonia s pecies pansensitive. Blood cultures x2 from 06/12/2018 showed no growth at [address] of the abdo men and pelvis dated 06/11/2018 showed 3 mm distal left ureteral calculus with mild hydroureteronephr osis. Prostate enlargement noted. HOSPITAL COURSE: Patient was admitted to the surgical floor after initially presenting with left fla nk pain with associated vomiting. The patient underwent general evaluation including CT of the abdom en and pelvis showing a distal left ureteral calculus approximately 3 mm in diameter. The patient wa s evaluated by the Urology Service, undergoing a retrograde pyelogram with eventual cystoscopy and le ft retrograde pyelogram with insertion of a left ureteral stent 06/11/2018. The patient continued on broad spectrum antibiotic coverage after Klebsiella species were identified and isolated on urine an d blood cultures. The patient was 2/2 positive blood culture for Klebsiella species pansensitive as noted previously. The patient transitioned to Levaquin 750 mg daily with recommendations to complete a 2 week course of antibiotic therapy until left ureteral stent is removed or stone is extracted. T he patient rapidly clinically improved with stent placement; however, no specific stone was identifie d as passing during the hospital course. The patient clinically stabilized and was tolerating regula r oral intake, ambulating without assistance or difficulty and voiding appropriately. I have examine d the patient at the time of discharge and discussed followup instructions at which point patient karen balizes understanding and agreement. The patient overall is clinically stable and ready for discharg e on 06/15/2018. DISCHARGE MEDICATIONS: 1. Levaquin 750 mg 1 tab p.o. daily x2 weeks. 2. Lisinopril 20 mg 1 tab p.o. daily. 3. Flomax 0.4 mg p.o. daily. FOLLOWUP: Patient will follow up with his primary care provider, Dr. Eunice Angelo within 7 days of discharge. The patient will follow up with Dr. Janeen Meade with Urology Service and to call her office for appointment time and date. CONDITION ON DISCHARGE: Stable. ACTIVITY: Ad naseem. DIET: Heart healthy. CODE STATUS: FULL. DISPOSITION: Home 06/15/2018. Total time preparing and coordinating discharge is 33 minutes.
--- NOTE | 2018-06-16 10:26 | PRG ---
DATE OF SERVICE: 06/15/2018. SUBJECTIVE: The patient did well over the weekend and his cultures have come back both in the blood and urine for Klebsiella pneumoniae, which is sensitive to everything. He is eating fine. He is feeling well and has no complaints. OBJECTIVE: VITAL SIGNS: His vitals have been stable. He has been afebrile. Some hypertension at 155/71. GENITOURINARY: His urine output has just been recorded at the urinal. GENERAL: He is comfortable in the bed eating his breakfast. LABORATORY DATA: Reveal white count that has normalized and the above- mentioned cultures for Klebsiella pneumoniae. ASSESSMENT AND PLAN: A 73-year-old male status post urgent stent for obstructing stone with urosepsis, doing well. We discussed how we could likely remove that stent in the office, given the very small stone and monitor, but otherwise he is ready for discharge and he can go out on 4 weeks of oral antibiotics. I have written him for Cipro. It can be this or something that is also sensitive to the Klebsiella, but he will need 4 weeks of antibiotics. He should continue on tamsulosin at this point. My office will call him to set up followup this week. ALEXANDER
== END 2018-06-15 11:33 | disposition home or self-care (01) | DRG 872 ==
LOC: SCSER 14:37 → SDC 18:25 → IMCU/EMU 19:56 → 2NO 06-12 15:18 → SURG A 06-13 18:26
PROVIDERS: ADMIT Internal Medicine; ATTEND Internal Medicine
PROC: BT1F1ZZ Fluoroscopy of Left Kidney, Ureter and Bladder using Low Osmolar Contrast (ICD-10-PCS; principal; 2018-06-11)
PROC: 0T778DZ Dilation of Left Ureter with Intraluminal Device, Via Natural or Artificial Opening Endoscopic (ICD-10-PCS; 2018-06-11)
DX: A41.4 Sepsis due to anaerobes (principal); N39.0 Urinary tract infection, site not specified; N20.2 Calculus of kidney with calculus of ureter; I10 Essential (primary) hypertension; R05 Cough; D72.829 Elevated white blood cell count, unspecified; K44.9 Diaphragmatic hernia without obstruction or gangrene; G24.3 Spasmodic torticollis; N40.0 Benign prostatic hyperplasia without lower urinary tract symptoms; Z87.442 Personal history of urinary calculi
CPT/HCPCS: 36415; 74176; 74420; 80048; 80053; 81001; 83605; 83690; 85025; 87040; 87070; 87077; 87086; 87149; 87186; 87205; 90471; 90670; 96361; 96365; 96375; 96376; A4216; C1758; G0009; J0696; J1100; J1644; J2001; J2270; J2405; J2704; J3010; J3370; J7050

== ENCOUNTER 2018-07-30 14:34 | Outpatient (CLI) | payer OTHER ==
--- NOTE | 2018-07-30 16:36 | ULT ---
BILATERAL RENAL ULTRASOUND: 07/30/18 HISTORY: Hydronephrosis and urinary tract calculi. FINDINGS: The right kidney measures 8.9 cm in length and the left kidney measures 9 cm in length. No hydronephr osis seen on either side. There is focal prominence of the mid left renal cortex which is most likely due to a dromedary hump. However, since an underlying mass cannot be completely excluded, recommend evaluation with CT scan using the adrenal mass protocol (with and without IV contrast). The urinary bladder is well distended and normal. IMPRESSION: 1. No evidence of urinary tract obstruction. 2. Dromedary hump versus mass in the left kidney. CT scan (with and without IV contrast) using t he renal mass protocol is recommended. POS: ZORAIDA
--- NOTE | 2018-07-30 21:06 | HP ---
PRIMARY CARE PHYSICIAN: Eunice Angelo MD UROLOGIST: Janeen Meade MD HISTORY OF PRESENT ILLNESS: This is a 73-year-old male with past medical history of hypertension, re nal stones approximately 30 years ago who presented with a chief complaint of left-sided flank pain t hat started in the middle of the night after getting up to use the restroom. This occurred approxima tely 3 days prior to admission and since then has progressed in pain, nausea, and vomiting secondary to the pain. The pain also seems to worsen with urinary attempt. The patient denies any fevers, chi lls, diarrhea. REVIEW OF SYSTEMS: As per HPI. Constitutional: No fevers, no chills, no significant weight loss or gain that the patient is aware of. HEENT: No headaches, changes in vision, lightheadedness, or diz ziness. Gastrointestinal: Nausea and vomiting only with episodes of pain. No nausea, no vomiting w hen pain is controlled. Abdomen: Has mostly flank pain or posterior pain as opposed to anterior abd ominal pain. No issues with diarrhea or constipation. Genitourinary: Denies any hematuria. Does h ave some dysuria. Musculoskeletal: Denies any myalgias or arthralgias. PAST MEDICAL HISTORY: As per HPI. Has a known history of hypertension; had a prior renal stone 30 y ears ago, but no urinary issue since then. At baseline, no issues with dysuria or urinary incontinen ce. HOME MEDICATIONS: Lisinopril 20 mg p.o. daily, tamsulosin 0.4 mg p.o. daily. ALLERGIES: CODEINE. SOCIAL HISTORY: The patient is . She is currently with him at bedside. He wishes to be FULL CODE at this point in time. Denies any alcohol, tobacco, or illicit drug use. FAMILY HISTORY: Denies any known family history of recurrent renal issues or kidney stone issues or urinary issues. PHYSICAL EXAMINATION: GENERAL: The patient is awake, alert, conversant, in no acute distress. HEENT: Normocephalic, atraumatic. Extraocular motions are intact. Moist mucous membranes. CARDIOVASCULAR: S1, S2. No murmurs, rubs, or gallops. Pulses 2+ bilateral upper extremities. No p itting pedal edema. RESPIRATORY: Clear to auscultation bilaterally. Reasonable air movement. No conversational dyspnea . Clear to auscultation otherwise without wheezes, rales, or rhonchi. ABDOMEN: Positive bowel sounds. Soft, nontender to palpation. CVA tenderness is present. MUSCULOSKELETAL: Moving all 4 extremities independently. LABORATORY DATA AND IMAGING: WBC 22.5, hemoglobin 16, hematocrit 44.8, platelets 275. Sodium 137, p otassium 4.5, chloride 103, bicarbonate 19, lactic acid 2.9, calcium 9.5, glucose 156, BUN 16, creati nine 1.3, AST 19, ALT 25, total bilirubin 1.4, alkaline phosphatase 71, total protein 7.8, albumin 4. 4, lipase is 13. UA is significant for orange color, 30 of protein, large amount of blood, moderate leukocyte esterase, greater than 50 urine rbc's, 11-20 urine wbc's, 1+ urine bacteria, 7-10 urine esperanza al epithelial cells. ASSESSMENT AND PLAN: A 73-year-old male presenting with left-sided flank pain, acute onset in the mi ddle of the night. 1. Concern for obstructive renal stone. I appreciate Urology consultation. Plan is to take the pat ient to OR at this point in time. 2. Criteria meeting for sepsis with leukocytosis, potential source of infection. Initial presentati on with a heart rate of 99. Empiric antibiotics will be administered. IV fluids and resuscitation. Close monitoring of the patient's pain, volume status, culture results from both blood and urine. 3. Hypertension. Continue the patient on his home regimen. 4. Diet: N.p.o. until post procedure. 5. Activity: As tolerated. 6. Deep venous thrombosis prophylaxis, enoxaparin. Thank you for asking me to care for this patient.
== END 2018-07-30 14:35 | disposition home or self-care (01) ==
LOC: BICULT 14:34
PROVIDERS: ATTEND Urology
DX: N20.1 Calculus of ureter (principal)
CPT/HCPCS: 76770